=== PATIENT | male | born 1985 ===

== ENCOUNTER 2016-09-01 01:23 | Inpatient (IN) | payer OTHER ==
[2016-09-01] VITALS (15 sets, daily range): BP systolic 100–131; BP diastolic 48–68
[~2016-09-01] VITALS: Ht 167.6 cm; Wt 79.3 kg
[2016-09-01] MEDS ORDERED: AMITRIPTYLINE H25 MG PO (02:25)
[2016-09-01] MEDS ORDERED: GABAPENTIN600 MG PO (02:25)
[2016-09-01] MEDS ORDERED: REMERON15 MG PO (02:26)
[2016-09-01] MEDS ORDERED: SEROQUEL100 MG PO (02:26)
--- NOTE | 2016-09-01 02:31 | ED ORDER SUMMARY ---
..... Patient: [address] OrderSheet [facility] VisitID: [id number] [address] [place] [address] 31y, M Registration Date/Time: 09/01/2016 ORDER SHEET Weight: 81 kg (measured) Allergies: No Known Drug Allergy GENERAL ORDERS: Chest 1V Urgent (:09/01/2016 Georgiana Felix) (Ack 1:41 AMcQuoid ER Tech1) (1:56 AMcQuoid ER Tech1) Blood Culture (No) (N/A) Urgent (:09/01/2016 Georgiana Felix) (Ack 1:41 AMcQuoid ER Tech1) (1:45 RCollier R.N.) CBC w Diff Urgent (:09/01/2016 Georgiana Felix) (Ack 1:41 AMcQuoid ER Tech1) (1:45 RCollier R.N.) CMP Urgent (:09/01/2016 Georgiana Felix) (Ack 1:41 AMcQuoid ER Tech1) (1:45 RCollier R.N.) UA-Culture if indicated Urgent (:09/01/2016 Georgiana Felix) (Ack 1:41 AMcQuoid ER Tech1) (1:45 RCollier R.N.) Urine Drug Screen Urgent (:09/01/2016 Georgiana Felix) (Ack 1:41 AMcQuoid ER Tech1) (1:45 RCollier R.N.) Lactic Acid for Sepsis Protocol Urgent (:09/01/2016 Georgiana Felix) (Ack 1:41 AMcQuoid ER Tech1) (1:45 RCollier R.N.) PCT (Procalcitonin) Urgent (:09/01/2016 Georgiana Felix) (Ack 1:41 AMcQuoid ER Tech1) (1:45 RCollier R.N.) ABG (G) Urgent (01:09/01/2016 Georgiana Felix) (Ack 1:41 AMcQuoid ER Tech1) (1:56 AMcQuoid ER Tech1) EKG - ER Stat (01:09/01/2016 AMcQuoid ER Tech1 per protocol) (1:56 AMcQuoid ER Tech1) MEDICATION ORDERS: Unasyn IV 3 gm/100mL (NOW) (02:07 09/01/2016 Georgiana Felix) (Ack 2:15 RCollier R.N.) (2:18 RCollier R.N.) Albuterol Neb Tx 1 unit dose (NOW) (02:08 09/01/2016 Georgiana Felix) (2:19 BORISollier R.N.) IV FLUIDS: IV NS : initial bolus none -, then 1000 mL/hr for X1 (NOW) (01:34 09/01/2016 Georgiana Felix) (1:39 RCollmarlyn R.N.) Propofol Drip IV : initial bolus None, then 0.1 mg/kg/min (HIGH ALERT MEDICATION, NOW, TITRATE) (01:35 09/01/2016 Georgiana Felix) (Ack 1:42 Jeremiasier R.N.) (1:44 RCollier R.N.) Propofol IV 100 mg (HIGH ALERT MEDICATION, NOW) (01:37 09/01/2016 Deven R.N. verbal order read back to Georgiana Felix) (1:38 RClisbet R.N.) Solu-MEDROL IV 125 mg (NOW) (02:08 09/01/2016 Georgiana Felix) (2:16 RCollier R.N.) ORDER SHEET NOTES: [Electronically signed by Amy Rae R.N. (03:19 09/01/2016)] [Electronically signed by Du Perez Dr. (03:25 09/01/2016)] [Electronically locked/signed by Amy Rae R.N. (03:19 09/01/2016)]
--- NOTE | 2016-09-01 02:31 | ED ORDER SUMMARY ---
..... Patient: [address] OrderSheet [facility] VisitID: [id number] [address] [place] [address] 31y, M Registration Date/Time: 09/01/2016 ORDER SHEET Weight: 81 kg (measured) Allergies: No Known Drug Allergy GENERAL ORDERS: Chest 1V Urgent (:09/01/2016 Georgiana Felix) (Ack 1:41 AMcQuoid ER Tech1) (1:56 AMcQuoid ER Tech1) Blood Culture (No) (N/A) Urgent (:09/01/2016 Georgiana Felix) (Ack 1:41 AMcQuoid ER Tech1) (1:45 RCollier R.N.) CBC w Diff Urgent (:09/01/2016 Georgiana Felix) (Ack 1:41 AMcQuoid ER Tech1) (1:45 RCollier R.N.) CMP Urgent (:09/01/2016 Georgiana Felix) (Ack 1:41 AMcQuoid ER Tech1) (1:45 RCollier R.N.) UA-Culture if indicated Urgent (:09/01/2016 Georgiana Felix) (Ack 1:41 AMcQuoid ER Tech1) (1:45 RCollier R.N.) Urine Drug Screen Urgent (:09/01/2016 Georgiana Felix) (Ack 1:41 AMcQuoid ER Tech1) (1:45 RCollier R.N.) Lactic Acid for Sepsis Protocol Urgent (:09/01/2016 Georgiana Felix) (Ack 1:41 AMcQuoid ER Tech1) (1:45 RCollier R.N.) PCT (Procalcitonin) Urgent (:09/01/2016 Georgiana Felix) (Ack 1:41 AMcQuoid ER Tech1) (1:45 RCollier R.N.) ABG (G) Urgent (01:09/01/2016 Georgiana Felix) (Ack 1:41 AMcQuoid ER Tech1) (1:56 AMcQuoid ER Tech1) EKG - ER Stat (01:09/01/2016 AMcQuoid ER Tech1 per protocol) (1:56 AMcQuoid ER Tech1) MEDICATION ORDERS: Unasyn IV 3 gm/100mL (NOW) (02:07 09/01/2016 Georgiana Felix) (Ack 2:15 RCollier R.N.) (2:18 RCollier R.N.) Albuterol Neb Tx 1 unit dose (NOW) (02:08 09/01/2016 Georgiana Felix) (2:19 BORISollier R.N.) IV FLUIDS: IV NS : initial bolus none -, then 1000 mL/hr for X1 (NOW) (01:34 09/01/2016 Georgiana Felix) (1:39 RCollmarlyn R.N.) Propofol Drip IV : initial bolus None, then 0.1 mg/kg/min (HIGH ALERT MEDICATION, NOW, TITRATE) (01:35 09/01/2016 Georgiana Felix) (Ack 1:42 Jeremiasier R.N.) (1:44 RCollier R.N.) Propofol IV 100 mg (HIGH ALERT MEDICATION, NOW) (01:37 09/01/2016 Deven R.N. verbal order read back to Georgiana Felix) (1:38 RClisbet R.N.) Solu-MEDROL IV 125 mg (NOW) (02:08 09/01/2016 Georgiana Felix) (2:16 RCollier R.N.) ORDER SHEET NOTES: [Electronically signed by Amy Rae R.N. (03:19 09/01/2016)] [Electronically signed by Du Perez Dr. (03:25 09/01/2016)] [Electronically locked/signed by Amy Rae R.N. (03:19 09/01/2016)]
--- NOTE | 2016-09-01 02:31 | ED CLINICAL REPORT ---
Clinical Report - Physicians/Mid Levels [facility] [address] [place] [address] 09/01/2016 1:23 Patient: [address] Time Seen: 01:34; upon arrival, initial patient contact. Arrived- By ambulance. Historian- EMS personnel. History limited by patient's respiratory distress. Physical Exam limited by patient's respiratory distress. CPT: ER phys charges level 5 (#[id number]) (ROS unobtainable due to being intubated). HISTORY OF PRESENT ILLNESS Chief Complaint: DYSPNEA and Aspiration. This started just prior to arrival and is still present. It was abrupt in onset. The dyspnea is severe. No improvement of dyspnea with rest or sitting upright. The patient has had a cough. (Pt found down by . Takes multiple psych meds that make him sleepy and hungry. Pt was apparently eating and aspirated. called 911 and was intubated by EMS.). Similar symptoms previously: None. Recent medical care: Not recently seen/assessed. REVIEW OF SYSTEMS Unobtainable due to patient's unresponsiveness and respiratory distress. All systems otherwise negative, except as recorded above. PAST HISTORY Substance Abuse. Tendonitis. Fx ribs. Left shoulder injury. Abscess. SOCIAL HISTORY Smoker - current status unknown. History of drug use. Is a recovering addict. ADDITIONAL NOTES The nursing notes have been reviewed. PHYSICAL EXAM Vital Signs: 09/01/2016 01:26 BP: 109/67. HR: 107. RR: 12. O2 saturation: 99%. Pain level now: 0/10. Have been reviewed. Blood pressure normal. Tachycardic. Bradypneic. Oxygen saturation normal. Appearance: (Intubated). ENT: The mucous membranes are not dry. Neck: No jugular venous distention. CVS: Tachycardia. Heart sounds normal. Rhythm normal. Respiratory: Respiratory distress (Intubated). Moderately decreased air movement in the right lung base posteriorly and mid-lung posteriorly. Expiratory mild bilateral wheezes diffusely. Abdomen: Soft. No organomegaly. The bowel sounds are not abnormal. Skin: Skin warm and dry. Normal skin color. Extremities: No lower extremity edema. Neuro: Altered mental status. (Intubated and sedated). LABS, X-RAYS, AND EKG EKG: EKG time: (148). Normal sinus rhythm. Rate: 100. Interpretation time: 148. Chest X-ray: Consolidated infiltrate in the right middle lobe and right lower lobe. Consistent with pneumonia. Views: AP. Technique: rotated. The X-rays were independently viewed by me and interpreted contemporaneously by me. A comparison with prior films reveals that the findings have worsened. Laboratory Tests: UA-Culture if indicated: (BRUCE: 09/01/2016 01:40) ( [facility]07) Final results Test Result Flag Units (Reference) URINE COLOR YELLOW URINE APPEARANCE CLEAR URINE GLUCOSE NEGATIVE (NEGATIVE) URINE BILIRUBIN NEGATIVE (NEGATIVE) URINE KETONE NEGATIVE (NEGATIVE) URINE SPECIFIC GRAVITY >= 1.030 (1.010-1.030) URINE PH 6.0 (5.0-8.0) URINE PROTEIN TRACE (NEGATIVE) URINE UROBILINOGEN 0.2 EU/dL (0.2-1.0) URINE NITRITE NEGATIVE (NEGATIVE) URINE BLOOD NEGATIVE (NEGATIVE) URINE LEUK ESTERASE NEGATIVE (NEGATIVE) URINE RBC RARE rbc/hpf (0-1) URINE WBC 0-1 wbc/hpf (0-1) URINE EPITHELIAL CELLS NONE SEEN EPI/hpf (0-5) URINE BACTERIA NONE SEEN (NONE SEEN) URINE COMMENT CULT NOT INDICATED URINE CULTURES ARE SET-UP BASED ON THE FOLLOWING CRITERIA:POSITIVE NITRITEPOSITIVE LEUKOCYTE ESTERASEGREATER THAN 10 WHITE BLOOD CELLSMODERATE (2+) OR GREATER BACTERIA CBC w Diff: (BRUCE: 09/01/2016 01:33) ( [facility] 09/01/2016 01:58) Final results Test Result Flag Units (Reference) WHITE BLOOD COUNT 10.3 K/uL (4.5-11.5) RED BLOOD COUNT 4.15 L M/uL (4.50-5.90) HEMOGLOBIN 12.4 L gm/dL (13.5-17.5) HEMATOCRIT 37.4 L % (41.0-53.0) MEAN CELL VOLUME 90 fL (80-100) MEAN CORPUSCULAR HGB 30 pg (26-34) MEAN CORPUSCULAR HGB CONC 33 g/dL (31-37) RED CELL DISTRIBUTION WIDTH 14.3 % (11.6-14.8) PLATELET COUNT 287 K/uL (150-400) NEUTROPHIL % 68.6 % (50-75) LYMPH % 19.7 L % (25-40) MONO % 9.2 % (3-14) EOSINOPHIL % 1.6 % (0-4) BASOPHIL % 0.9 % (0-2) Urine Drug Screen: (BRUCE: 09/01/2016 01:40) ( MsgRcvd 09/01/2016 02:15) Final results Test Result Flag Units (Reference) AMPHETAMINE/METHAMPHETAMINE NEGATIVE (NEGATIVE) BARBITURATE NEGATIVE (NEGATIVE) BENZODIAZEPINE POSITIVE H (NEGATIVE) CANNABINOID NEGATIVE (NEGATIVE) COCAINE NEGATIVE (NEGATIVE) ECSTASY POSITIVE H (NEGATIVE) METHADONE NEGATIVE (NEGATIVE) OPIATE POSITIVE H (NEGATIVE) The urine drug screen is a qualitative screening test fordrug overdose and abuse. All screen results should beconsidered as presumptive.Drugs screened for are as follows:BenzodiazepinesCocaineAmphetamines/MetamphetaminesTHC (Tetrahydrocannabinol)OpiatesBarbituratesEcstasyMethadonePositive results are unconfirmed. For confirmation, notifythe lab for the specimen to be sent to the reference lab.All confirmations must be performed by a differentmethodology.The ingestion of natural herbal and plant productscontaining Ephedra/Ephedra metabolites can produce in urineone or more substances capable of cross reacting withamphetamine/methamphetamine immunoassays. These testsprovide a preliminary result only. A more specificalternative chemical method must be used to obtain aconfirmed analytical result. [id number]: (BRUCE: 09/01/2016 01:33) ( MdgRcvd 09/01/2016 02:16) Final results Test Result Flag Units (Reference) LACTIC ACID SEPSIS PROTOCOL 0.9 mmol/L (0.4-2.0) [id number]: (BRUCE: 09/01/2016 01:33) ( MsgRcvd 09/01/2016 02:17) Final results Test Result Flag Units (Reference) PROCALCITONIN <0.5 ng/mL (0-0.5) PCT Concentration: Interpretation : Risk/option for action PCT <=0.5 ng/mL : Systemic : Low risk forinfection(sepsis): progression to severeis not likely. : systemic infection.Local bacterial : CAUTION-PCT levelsinfection is : below 0.5 ng/mL do notpossible. : exclude an infection,because localizedinfections (withoutsystemic signs) may beassociated with suchlow levels. If PCT ismeasured very earlyafter a bacterialchallenge (usually <6hours), these valuesmay still be low. Inthis case PCT shouldbe re-assessed 6-24hours later. PCT >0.5 and : Systemic infection: Moderate risk for<= 2 ng/mL : (sepsis) is : progression to severepossible, but : systemic infection.other conditions : The patient should beare known to : closely monitoredelevate PCT. : both clinically andby re-assessing PCTwithin 6-24 hours. PCT > 2 ng/mL : Systemic infection: High risk for(sepsis) is likely: progression to severeunless other : systemic infection.causes are known. : PCT >= 10 ng/mL : Important systemic: High likelihood ofinflammatory : severe sepsis orresponse, almost : septic shock.exclusively due to:severe bacterial :sepsis or septic :shock. : CMP: (BRUCE: 09/01/2016 01:33) ( MsgRcvd 09/01/2016 01:58) Final results Test Result Flag Units (Reference) GLUCOSE 103 mg/dL (70-110) BUN 14 mg/dL (7-18) CREATININE 1.0 mg/dL (0.6-1.3) Estimated GFR >60 mL/min Estimated GFR- >60 mL/min Note: Persistent reduction over 3 months in eGFR<60 mL/min/1.73 m2 defines CKD. Patients with eGFR values>=60 mL/min/1.73 m2 may also have CKD if evidence ofpersistent proteinuria. Additional information may be foundat www.kidney.org. SODIUM 141 mmol/L (136-145) POTASSIUM 4.7 mmol/L (3.5-5.1) CHLORIDE 106 mmol/L (98-107) CARBON DIOXIDE 30 mmol/L (21-32) CALCIUM 7.7 L mg/dL (8.5-10.1) TOTAL PROTEIN 6.8 g/dL (6.4-8.2) ALBUMIN 3.4 g/dL (3.3-5.0) BILIRUBIN, TOTAL 0.4 mg/dL (0.0-1.0) ALKALINE PHOSPHATASE 51 U/L (46-116) AST (SGOT) 81 H U/L (15-37) ALT (SGPT) 47 U/L (12-78) ABG: (BRUCE: 09/01/2016 01:39) ( Mscvd 09/01/2016 02:03) Final results Test Result Flag Units (Reference) FIO2 100 % (20-101) MODIFIED LAURA TEST POSITIVE? NO ABG VENT MODE SIMV ABG TIDAL VOLUME 500 cc ABG PATIENT RESP RATE 6 /MIN ABG RESP RATE SETTINGS 12 /MIN ARTERIAL BLOOD GAS PEEP 5 cmH2O ABG PRESSURE SUPPORT 5 cmH2O ARTERIAL BLOOD GAS SITE RR ARTERIAL BLOOD GAS pH 7.31 L (7.35-7.45) ABG PCO2 57.0 H mmHg (35-45) ABG PO2 181.0 H mmHg (80.0-100.0) ABG BASE EXCESS 2.2 H mmol/L (-6.0--6.0) ABG HCO3 28.9 H mmol/L (20.0-26.0) ABG TCO2 30.6 H mmol/L (24.0-30.0) ABG UnClQ5u 478.2 H mmHg (7.0-14.0) *NOTE: Normal rangeis based on aFIO2 of 21% ABG SAT O2 99.6 % (95.1-100.0) ABG TOTAL HEMOGLOBIN 12.2 L g/dL (14.0-18.0) ABG O2 HEMOGLOBIN 95.0 % (95.0-100.0) ABG CARBOXYHEMOGLOBIN 4.4 H % (0.5-1.5) ABG METHEMOGLOBIN 0.2 L % (0.4-1.5) ABG RHEMOGLOBIN 0.4 % COMMENTS [id number] . PROGRESS AND PROCEDURES Critical care performed (65 minutes). Time includes: direct patient care, patient reassessment, coordination of patient care, interpretation of data (laboratory data, pulse oximetry, arterial blood gases and chest xrays), review of patient's medical records, medical consultation and documentation of patient care. The patient required critical care due to the acute impairment of vital organ systems (respiratory) and a high probability of imminent deterioration. Multiple urgent interventions were required to prevent sudden deterioration. Discussed case with hospitalist, (call returned 02:38 Dr. Reddy, will accept pt, will see in ICU.). Reviewed test results and need for additional work-up. Health care provider will see patient in hospital. Disposition: Admitted to the Critical Care Unit. Condition: stable. Admit decision based on need for IV antibiotics, intensive care and stabilization of condition. CLINICAL IMPRESSION Aspiration and lobar pneumonia with hypoxemia and respiratory failure. Empiric antibiotics given in the ED. Acute respiratory failure with hypoxemia. Chronic substance abuse- benzodiazepines, narcotics with intoxication. INSTRUCTIONS Follow-up: Screening today revealed the patient's blood pressure to be in the pre-hypertensive range. The patient was admitted and blood pressure will be managed during the admission. (Electronically signed by Du Perez Dr. 09/01/2016 3:25)
--- NOTE | 2016-09-01 02:31 | ED CLINICAL REPORT ---
Clinical Report - Physicians/Mid Levels [facility] [address] [place] [address] 09/01/2016 1:23 Patient: [address] Time Seen: 01:34; upon arrival, initial patient contact. Arrived- By ambulance. Historian- EMS personnel. History limited by patient's respiratory distress. Physical Exam limited by patient's respiratory distress. CPT: ER phys charges level 5 (#[id number]) (ROS unobtainable due to being intubated). HISTORY OF PRESENT ILLNESS Chief Complaint: DYSPNEA and Aspiration. This started just prior to arrival and is still present. It was abrupt in onset. The dyspnea is severe. No improvement of dyspnea with rest or sitting upright. The patient has had a cough. (Pt found down by . Takes multiple psych meds that make him sleepy and hungry. Pt was apparently eating and aspirated. called 911 and was intubated by EMS.). Similar symptoms previously: None. Recent medical care: Not recently seen/assessed. REVIEW OF SYSTEMS Unobtainable due to patient's unresponsiveness and respiratory distress. All systems otherwise negative, except as recorded above. PAST HISTORY Substance Abuse. Tendonitis. Fx ribs. Left shoulder injury. Abscess. SOCIAL HISTORY Smoker - current status unknown. History of drug use. Is a recovering addict. ADDITIONAL NOTES The nursing notes have been reviewed. PHYSICAL EXAM Vital Signs: 09/01/2016 01:26 BP: 109/67. HR: 107. RR: 12. O2 saturation: 99%. Pain level now: 0/10. Have been reviewed. Blood pressure normal. Tachycardic. Bradypneic. Oxygen saturation normal. Appearance: (Intubated). ENT: The mucous membranes are not dry. Neck: No jugular venous distention. CVS: Tachycardia. Heart sounds normal. Rhythm normal. Respiratory: Respiratory distress (Intubated). Moderately decreased air movement in the right lung base posteriorly and mid-lung posteriorly. Expiratory mild bilateral wheezes diffusely. Abdomen: Soft. No organomegaly. The bowel sounds are not abnormal. Skin: Skin warm and dry. Normal skin color. Extremities: No lower extremity edema. Neuro: Altered mental status. (Intubated and sedated). LABS, X-RAYS, AND EKG EKG: EKG time: (148). Normal sinus rhythm. Rate: 100. Interpretation time: 148. Chest X-ray: Consolidated infiltrate in the right middle lobe and right lower lobe. Consistent with pneumonia. Views: AP. Technique: rotated. The X-rays were independently viewed by me and interpreted contemporaneously by me. A comparison with prior films reveals that the findings have worsened. Laboratory Tests: UA-Culture if indicated: (BRUCE: 09/01/2016 01:40) ( [facility] [place] 09/01/[place] 02:07) Final results Test Result Flag Units (Reference) URINE COLOR YELLOW URINE APPEARANCE CLEAR URINE GLUCOSE NEGATIVE (NEGATIVE) URINE BILIRUBIN NEGATIVE (NEGATIVE) URINE KETONE NEGATIVE (NEGATIVE) URINE SPECIFIC GRAVITY >= 1.030 (1.010-1.030) URINE PH 6.0 (5.0-8.0) URINE PROTEIN TRACE (NEGATIVE) URINE UROBILINOGEN 0.2 EU/dL (0.2-1.0) URINE NITRITE NEGATIVE (NEGATIVE) URINE BLOOD NEGATIVE (NEGATIVE) URINE LEUK ESTERASE NEGATIVE (NEGATIVE) URINE RBC RARE rbc/hpf (0-1) URINE WBC 0-1 wbc/hpf (0-1) URINE EPITHELIAL CELLS NONE SEEN EPI/hpf (0-5) URINE BACTERIA NONE SEEN (NONE SEEN) URINE COMMENT CULT NOT INDICATED URINE CULTURES ARE SET-UP BASED ON THE FOLLOWING CRITERIA:POSITIVE NITRITEPOSITIVE LEUKOCYTE ESTERASEGREATER THAN 10 WHITE BLOOD CELLSMODERATE (2+) OR GREATER BACTERIA CBC w Diff: (BRUCE: 09/01/2016 01:33) ( [facility] [place] 09/01/2016 01:58) Final results Test Result Flag Units (Reference) WHITE BLOOD COUNT 10.3 K/uL (4.5-11.5) RED BLOOD COUNT 4.15 L M/uL (4.50-5.90) HEMOGLOBIN 12.4 L gm/dL (13.5-17.5) HEMATOCRIT 37.4 L % (41.0-53.0) MEAN CELL VOLUME 90 fL (80-100) MEAN CORPUSCULAR HGB 30 pg (26-34) MEAN CORPUSCULAR HGB CONC 33 g/dL (31-37) RED CELL DISTRIBUTION WIDTH 14.3 % (11.6-14.8) PLATELET COUNT 287 K/uL (150-400) NEUTROPHIL % 68.6 % (50-75) LYMPH % 19.7 L % (25-40) MONO % 9.2 % (3-14) EOSINOPHIL % 1.6 % (0-4) BASOPHIL % 0.9 % (0-2) Urine Drug Screen: (BRUCE: 09/01/2016 01:40) ( MsgRcvd 09/01/2016 02:15) Final results Test Result Flag Units (Reference) AMPHETAMINE/METHAMPHETAMINE NEGATIVE (NEGATIVE) BARBITURATE NEGATIVE (NEGATIVE) BENZODIAZEPINE POSITIVE H (NEGATIVE) CANNABINOID NEGATIVE (NEGATIVE) COCAINE NEGATIVE (NEGATIVE) ECSTASY POSITIVE H (NEGATIVE) METHADONE NEGATIVE (NEGATIVE) OPIATE POSITIVE H (NEGATIVE) The urine drug screen is a qualitative screening test fordrug overdose and abuse. All screen results should beconsidered as presumptive.Drugs screened for are as follows:BenzodiazepinesCocaineAmphetamines/MetamphetaminesTHC (Tetrahydrocannabinol)OpiatesBarbituratesEcstasyMethadonePositive results are unconfirmed. For confirmation, notifythe lab for the specimen to be sent to the reference lab.All confirmations must be performed by a differentmethodology.The ingestion of natural herbal and plant productscontaining Ephedra/Ephedra metabolites can produce in urineone or more substances capable of cross reacting withamphetamine/methamphetamine immunoassays. These testsprovide a preliminary result only. A more specificalternative chemical method must be used to obtain aconfirmed analytical result. [id number]: (BRUCE: 09/01/2016 01:33) ( KsgRcvd 09/01/2016 02:16) Final results Test Result Flag Units (Reference) LACTIC ACID SEPSIS PROTOCOL 0.9 mmol/L (0.4-2.0) [id number]: (BRUCE: 09/01/2016 01:33) ( MsgRcvd 09/01/2016 02:17) Final results Test Result Flag Units (Reference) PROCALCITONIN <0.5 ng/mL (0-0.5) PCT Concentration: Interpretation : Risk/option for action PCT <=0.5 ng/mL : Systemic : Low risk forinfection(sepsis): progression to severeis not likely. : systemic infection.Local bacterial : CAUTION-PCT levelsinfection is : below 0.5 ng/mL do notpossible. : exclude an infection,because localizedinfections (withoutsystemic signs) may beassociated with suchlow levels. If PCT ismeasured very earlyafter a bacterialchallenge (usually <6hours), these valuesmay still be low. Inthis case PCT shouldbe re-assessed 6-24hours later. PCT >0.5 and : Systemic infection: Moderate risk for<= 2 ng/mL : (sepsis) is : progression to severepossible, but : systemic infection.other conditions : The patient should beare known to : closely monitoredelevate PCT. : both clinically andby re-assessing PCTwithin 6-24 hours. PCT > 2 ng/mL : Systemic infection: High risk for(sepsis) is likely: progression to severeunless other : systemic infection.causes are known. : PCT >= 10 ng/mL : Important systemic: High likelihood ofinflammatory : severe sepsis orresponse, almost : septic shock.exclusively due to:severe bacterial :sepsis or septic :shock. : CMP: (BRUCE: 09/01/2016 01:33) ( MsgRcvd 09/01/2016 01:58) Final results Test Result Flag Units (Reference) GLUCOSE 103 mg/dL (70-110) BUN 14 mg/dL (7-18) CREATININE 1.0 mg/dL (0.6-1.3) Estimated GFR >60 mL/min Estimated GFR- >60 mL/min Note: Persistent reduction over 3 months in eGFR<60 mL/min/1.73 m2 defines CKD. Patients with eGFR values>=60 mL/min/1.73 m2 may also have CKD if evidence ofpersistent proteinuria. Additional information may be foundat [email or web address].org. SODIUM 141 mmol/L (136-145) POTASSIUM 4.7 mmol/L (3.5-5.1) CHLORIDE 106 mmol/L (98-107) CARBON DIOXIDE 30 mmol/L (21-32) CALCIUM 7.7 L mg/dL (8.5-10.1) TOTAL PROTEIN 6.8 g/dL (6.4-8.2) ALBUMIN 3.4 g/dL (3.3-5.0) BILIRUBIN, TOTAL 0.4 mg/dL (0.0-1.0) ALKALINE PHOSPHATASE 51 U/L (46-116) AST (SGOT) 81 H U/L (15-37) ALT (SGPT) 47 U/L (12-78) ABG: (BRUCE: 09/01/2016 01:39) ( [facility] 09/01/2016 02:03) Final results Test Result Flag Units (Reference) FIO2 100 % (20-101) MODIFIED LAURA TEST POSITIVE? NO ABG VENT MODE SIMV ABG TIDAL VOLUME 500 cc ABG PATIENT RESP RATE 6 /MIN ABG RESP RATE SETTINGS 12 /MIN ARTERIAL BLOOD GAS PEEP 5 cmH2O ABG PRESSURE SUPPORT 5 cmH2O ARTERIAL BLOOD GAS SITE RR ARTERIAL BLOOD GAS pH 7.31 L (7.35-7.45) ABG PCO2 57.0 H mmHg (35-45) ABG PO2 181.0 H mmHg (80.0-100.0) ABG BASE EXCESS 2.2 H mmol/L (-6.0--6.0) ABG HCO3 28.9 H mmol/L (20.0-26.0) ABG TCO2 30.6 H mmol/L (24.0-30.0) ABG ThCoN6l 478.2 H mmHg (7.0-14.0) *NOTE: Normal rangeis based on aFIO2 of 21% ABG SAT O2 99.6 % (95.1-100.0) ABG TOTAL HEMOGLOBIN 12.2 L g/dL (14.0-18.0) ABG O2 HEMOGLOBIN 95.0 % (95.0-100.0) ABG CARBOXYHEMOGLOBIN 4.4 H % (0.5-1.5) ABG METHEMOGLOBIN 0.2 L % (0.4-1.5) ABG RHEMOGLOBIN 0.4 % COMMENTS [id number] . PROGRESS AND PROCEDURES Critical care performed (65 minutes). Time includes: direct patient care, patient reassessment, coordination of patient care, interpretation of data (laboratory data, pulse oximetry, arterial blood gases and chest xrays), review of patient's medical records, medical consultation and documentation of patient care. The patient required critical care due to the acute impairment of vital organ systems (respiratory) and a high probability of imminent deterioration. Multiple urgent interventions were required to prevent sudden deterioration. Discussed case with hospitalist, (call returned 02:38 Dr. Reddy, will accept pt, will see in ICU.). Reviewed test results and need for additional work-up. Health care provider will see patient in hospital. Disposition: Admitted to the Critical Care Unit. Condition: stable. Admit decision based on need for IV antibiotics, intensive care and stabilization of condition. CLINICAL IMPRESSION Aspiration and lobar pneumonia with hypoxemia and respiratory failure. Empiric antibiotics given in the ED. Acute respiratory failure with hypoxemia. Chronic substance abuse- benzodiazepines, narcotics with intoxication. INSTRUCTIONS Follow-up: Screening today revealed the patient's blood pressure to be in the pre-hypertensive range. The patient was admitted and blood pressure will be managed during the admission. (Electronically signed by Du Perez Dr. 09/01/2016 3:25)
--- NOTE | 2016-09-01 02:31 | ED NURSING NOTES ---
Clinical Report - Nurses [facility] [address] [place] [address] 09/01/2016 1:23 Patient: [address] TRIAGE Triage time 01:24. Acuity: LEVEL 1. Chief Complaint: LOSS OF CONSCIOUSNESS. DHRUV COMA SCORE: Dhruv Coma Scale: 3 (intubated)- eyes do not open (1); best verbal response- none (1); best motor response- none (1). --01:34 Amy Rae R.N. 01:26 09/01/16. BP: 109/67. HR: 107. RR: 12. O2 saturation: 99%. Pain level now: 0/10. Additional comments: pt intubated. --01:34 Amy Rae R.N. Weight: 81 kg measured. Height/Length: 73 inches Estimated. BMI: 23.6. --01:30 Amy Rae R.N. Medications Gabapentin Oral 600 mg, 3x a day. Remeron Oral 30 mg, daily. SEROquel Oral 300 mg, at bedtime. --01:32 Amy Rae R.N. Amitriptyline HCl Oral (Tablet 100 mg) 1 tablet, at bedtime. --01:32 Amy Rae R.N. Allergies No Known Drug Allergy. --01:32 Amy Rae R.N. History Arrived by EMS. ( pt arrives intubated with 7.0 tube, 23 @ teeth.). This started today pt took night time meds, got up to eat a snack, heard a noise, came out to the kitchen to find pt on the floor, vomiting. Pt was unresponsive at that time. called 911. Treatment MANDREL PRESS HAND: See EMS report. --01:34 Amy Rae R.N. PROBLEMS: Substance Abuse. Tendonitis. Fx ribs. Left shoulder injury. Abscess. --01:32 Amy Rae R.N. Interventions ID band on patient. To treatment room. --01:34 Amy Rae R.N. PHYSICAL ASSESSMENT To room via stretcher. ( bilateral feet warm, flushed upon arrival to ED.). GENERAL / NEURO / PSYCH: The patient is unresponsive. CVS: Right breast area : abrasion. Left breast area : abrasion. Capillary refill less than 2 seconds. --01:49 Amy Rae R.N. NURSING PROGRESS NOTES 01:30 09/01/2016 Site #1 started prior to arrival by EMS via IV in the right antecubital space with an 18g angiocath, with aseptic technique and good blood return; one attempt. Saline lock flushed with 10 mL saline. --01:34 Amy Rae R.N. 01:30 09/01/2016 Site #2 started via IV in the left forearm with an 18g angiocath, with aseptic technique and good blood return; one attempt. Blood drawn: rainbow set. Labeled in the presence of the patient and sent to the lab. Saline lock flushed with 10 mL saline (IV #2 started by CORETTA Donato). --01:35 Amy Rae R.N. Side rails up x 2. --01:35 Amy Rae R.N. ( EDMD, 3 RN's, RT, & 2 gas main and line fitter's at bedside upon arrival). --01:36 Amy Rae R.N. 01:31 09/01/2016 PROPOFOL IVP 100 mg given over 10 second(s) via site #1. Allergies verified and confirmed 5 rights. IV patency established. IV site checked: no pain, redness, or swelling. IV flushed thoroughly pre- and post-medication administration. IVP given by physician. --01:38 Amy Rae R.N. 01:39 09/01/2016 Started bag #1 1000 mL IV Fluids IV NS (Saline); at 2000 mg/hr via site #1. Allergies verified and confirmed 5 rights. IV patency established. IV site checked: no pain, redness, or swelling. IV flushed thoroughly pre- and post-medication administration (IV bag #1 hanging upon arrival, 800ml infused upon arrival to ED). --01:39 Amy Rae R.N. 16 fr rivers catheter. Reason for indwelling catheter: patient's decreased level of consciousness. During procedure hand hygiene observed and sterile equipment and aseptic technique used. Return of yellow-colored clear urine. He tolerated procedure well (Rivers placed by CORETTA Donato). --01:41 Amy Rae R.N. Patient ID band checked for patient name and birthdate: patient confirmed. Catheterized urine collected with return of shirley-colored clear urine; sample sent to lab. Specimen labeled in the presence of the patient (collected and labeled by CORETTA Donato). --01:41 Amy Rae R.N. 01:44 09/01/2016 Started 1000 mg of Propofol Drip IV in bag #1 100 mL; at 8 mcg/kg/min via site #1 via IV pump. Allergies verified and confirmed 5 rights. IV patency established. IV site checked: no pain, redness, or swelling. IV flushed thoroughly pre- and post-medication administration (drip managed by Gloria Winchester CCU RN). --01:44 Amy Rae R.N. ekg monitor, pulse oximeter, end tidal CO2 monitor and NIBP monitor placed on patient; monitor alarms on. --01:47 Amy Rae R.N. 01:49 09/01/16. BP: 131/76. HR: 99. RR: 18. O2 saturation: 100%. O2 started via ventilator. --01:50 Amy Rae R.N. 02:12 09/01/2016 SOLU-MEDROL (MethylPREDNISolone Sodium Succ) IVP 125 mg given over 1 minute(s) via site #2. Allergies verified and confirmed 5 rights. IV patency established. IV site checked: no pain, redness, or swelling. IV flushed thoroughly pre- and post-medication administration. IVP given by RN (pushed by CORETTA Castro). --02:16 Amy Rae R.N. 02:14 09/01/2016 Albuterol Neb TX Nebulizer 1 unit dose given. Given by the respiratory therapist. Allergies verified and confirmed 5 rights. --02:19 Amy Rae R.N. 02:17 09/01/2016 Started 3 gm of Unasyn (Ampicillin-Sulbactam Sodium) IVPB in bag #1 100 mL; at 324 mL/hr over 20 minute(s) via site #2 via IV pump. Allergies verified and confirmed 5 rights. IV patency established. IV site checked: no pain, redness, or swelling. IV flushed thoroughly pre- and post-medication administration (started by CORETTA Donato). --02:18 Amy Rae R.N. 02:19 09/01/16. BP: 120/75. HR: 91. RR: 12. O2 saturation: 100% on ventilator. Temp: 35.9 C. --02:20 Amy Rae R.N. 02:21 09/01/2016 Propofol Drip IV via IV site #1 Rate Changed: bag #1 increased to 10 mcg/kg/min via IV pump. IV patency established. IV site checked: no pain, redness, or swelling. IV flushed thoroughly. Confirmed 5 Rights (rate changed by CORETTA Castro). --02:23 Amy Rae R.N. 02:30 09/01/2016 IV Fluids IV NS via IV site #1 Rate Changed: bag #1 decreased to 50 mL/hr via IV pump. IV patency established. IV site checked: no pain, redness, or swelling. IV flushed thoroughly. Confirmed 5 Rights (for last 100ml in bag #1, per verbal order from EDMD). --02:32 Amy Rae R.N. 02:38 09/01/2016 Unasyn IVPB Discontinued: bag #1 completed. Total amount infused: 100 mL. IV patency established. IV site checked: no pain, redness, or swelling. IV flushed thoroughly. --02:38 Amy Rae R.N. EKG time: (01:49 AM). EKG was performed by a tech and shown to the ED physician. --02:45 Rae Martinez 03:00 09/01/2016 IV Fluids IV NS Discontinued: bag #1 completed. Total amount infused: 950 mL. IV patency established. IV site checked: no pain, redness, or swelling. IV flushed thoroughly. --03:18 Amy Rae R.N. Intake & Output Urine: 02:30, with return of 400 mL shirley-colored clear urine; attached to urimeter. --02:35 Amy Rae R.N. DISPOSITION / DISCHARGE Report was given to a nurse via a phone call. Report included patient's care, treatment, medications, reviewed medication reconcilliation, and condition (including any recent changes or anticipated changes). All questions were answered. Report was acknowledged. --02:44 Amy Rae R.N. Admitted to the Critical Care Unit. --02:45 Amy Rae R.N. 02:54 09/01/16. BP: 133/72. HR: 97. RR: 12. O2 saturation: 100% on ventilator. Temp: 35.9 C. --02:55 Amy Rae R.N. Transported via stretcher by nurse and respiratory therapist with IV and ventilator. --02:55 Amy Rae R.N. 02:55 09/01/2016 Site #[address] upon admission. --02:55 Amy Rae R.N. 02:55 09/01/2016 Site #[address] upon admission. --02:56 Amy Rae R.N. 02:56 09/01/2016 Propofol Drip IV Continued: upon admission at the rate of 10 mcg/kg/hr. 94.8 mL remaining bag #1. IV patency established. IV site checked: no pain, redness, or swelling. IV flushed thoroughly. --02:57 Amy Rae R.N. Locked/Released at 09/01/2016 3:19 by Amy Rae R.N.
--- NOTE | 2016-09-01 02:31 | ED NURSING NOTES ---
Clinical Report - Nurses [facility] [address] [place] [address] 09/01/2016 1:23 Patient: [address] TRIAGE Triage time 01:24. Acuity: LEVEL 1. Chief Complaint: LOSS OF CONSCIOUSNESS. DHRUV COMA SCORE: Dhruv Coma Scale: 3 (intubated)- eyes do not open (1); best verbal response- none (1); best motor response- none (1). --01:34 Amy Rae R.N. 01:26 09/01/16. BP: 109/67. HR: 107. RR: 12. O2 saturation: 99%. Pain level now: 0/10. Additional comments: pt intubated. --01:34 Amy Rae R.N. Weight: 81 kg measured. Height/Length: 73 inches Estimated. BMI: 23.6. --01:30 Amy Rae R.N. Medications Gabapentin Oral 600 mg, 3x a day. Remeron Oral 30 mg, daily. SEROquel Oral 300 mg, at bedtime. --01:32 Amy Rae R.N. Amitriptyline HCl Oral (Tablet 100 mg) 1 tablet, at bedtime. --01:32 Amy Rae R.N. Allergies No Known Drug Allergy. --01:32 Amy Rae R.N. History Arrived by EMS. ( pt arrives intubated with 7.0 tube, 23 @ teeth.). This started today pt took night time meds, got up to eat a snack, heard a noise, came out to the kitchen to find pt on the floor, vomiting. Pt was unresponsive at that time. called 911. Treatment SAFETY ADMIN ASSISTANT: See EMS report. --01:34 Amy Rae R.N. PROBLEMS: Substance Abuse. Tendonitis. Fx ribs. Left shoulder injury. Abscess. --01:32 Amy Rae R.N. Interventions ID band on patient. To treatment room. --01:34 Amy Rae R.N. PHYSICAL ASSESSMENT To room via stretcher. ( bilateral feet warm, flushed upon arrival to ED.). GENERAL / NEURO / PSYCH: The patient is unresponsive. CVS: Right breast area : abrasion. Left breast area : abrasion. Capillary refill less than 2 seconds. --01:49 Amy Rae R.N. NURSING PROGRESS NOTES 01:30 09/01/2016 Site #1 started prior to arrival by EMS via IV in the right antecubital space with an 18g angiocath, with aseptic technique and good blood return; one attempt. Saline lock flushed with 10 mL saline. --01:34 Amy Rae R.N. 01:30 09/01/2016 Site #2 started via IV in the left forearm with an 18g angiocath, with aseptic technique and good blood return; one attempt. Blood drawn: rainbow set. Labeled in the presence of the patient and sent to the lab. Saline lock flushed with 10 mL saline (IV #2 started by CORETTA Donato). --01:35 Amy Rae R.N. Side rails up x 2. --01:35 Amy Rae R.N. ( EDMD, 3 RN's, RT, & 2 bean dumper's at bedside upon arrival). --01:36 Amy Rae R.N. 01:31 09/01/2016 PROPOFOL IVP 100 mg given over 10 second(s) via site #1. Allergies verified and confirmed 5 rights. IV patency established. IV site checked: no pain, redness, or swelling. IV flushed thoroughly pre- and post-medication administration. IVP given by physician. --01:38 Amy Rae R.N. 01:39 09/01/2016 Started bag #1 1000 mL IV Fluids IV NS (Saline); at 2000 mg/hr via site #1. Allergies verified and confirmed 5 rights. IV patency established. IV site checked: no pain, redness, or swelling. IV flushed thoroughly pre- and post-medication administration (IV bag #1 hanging upon arrival, 800ml infused upon arrival to ED). --01:39 Amy Rae R.N. 16 fr rivers catheter. Reason for indwelling catheter: patient's decreased level of consciousness. During procedure hand hygiene observed and sterile equipment and aseptic technique used. Return of yellow-colored clear urine. He tolerated procedure well (Rivers placed by CORETTA Donato). --01:41 Amy Rae R.N. Patient ID band checked for patient name and birthdate: patient confirmed. Catheterized urine collected with return of shirley-colored clear urine; sample sent to lab. Specimen labeled in the presence of the patient (collected and labeled by CORETTA Donato). --01:41 Amy Rae R.N. 01:44 09/01/2016 Started 1000 mg of Propofol Drip IV in bag #1 100 mL; at 8 mcg/kg/min via site #1 via IV pump. Allergies verified and confirmed 5 rights. IV patency established. IV site checked: no pain, redness, or swelling. IV flushed thoroughly pre- and post-medication administration (drip managed by Gloria Winchester CCU RN). --01:44 Amy Rae R.N. postpartum rn, pulse oximeter, end tidal CO2 monitor and NIBP monitor placed on patient; monitor alarms on. --01:47 Amy Rae R.N. 01:49 09/01/16. BP: 131/76. HR: 99. RR: 18. O2 saturation: 100%. O2 started via ventilator. --01:50 Amy Rae R.N. 02:12 09/01/2016 SOLU-MEDROL (MethylPREDNISolone Sodium Succ) IVP 125 mg given over 1 minute(s) via site #2. Allergies verified and confirmed 5 rights. IV patency established. IV site checked: no pain, redness, or swelling. IV flushed thoroughly pre- and post-medication administration. IVP given by RN (pushed by CORETTA Castro). --02:16 Amy Rae R.N. 02:14 09/01/2016 Albuterol Neb TX Nebulizer 1 unit dose given. Given by the respiratory therapist. Allergies verified and confirmed 5 rights. --02:19 Amy Rae R.N. 02:17 09/01/2016 Started 3 gm of Unasyn (Ampicillin-Sulbactam Sodium) IVPB in bag #1 100 mL; at 324 mL/hr over 20 minute(s) via site #2 via IV pump. Allergies verified and confirmed 5 rights. IV patency established. IV site checked: no pain, redness, or swelling. IV flushed thoroughly pre- and post-medication administration (started by CORETTA Donato). --02:18 Amy Rae R.N. 02:19 09/01/16. BP: 120/75. HR: 91. RR: 12. O2 saturation: 100% on ventilator. Temp: 35.9 C. --02:20 Amy Rae R.N. 02:21 09/01/2016 Propofol Drip IV via IV site #1 Rate Changed: bag #1 increased to 10 mcg/kg/min via IV pump. IV patency established. IV site checked: no pain, redness, or swelling. IV flushed thoroughly. Confirmed 5 Rights (rate changed by CORETTA Castro). --02:23 Amy Rae R.N. 02:30 09/01/2016 IV Fluids IV NS via IV site #1 Rate Changed: bag #1 decreased to 50 mL/hr via IV pump. IV patency established. IV site checked: no pain, redness, or swelling. IV flushed thoroughly. Confirmed 5 Rights (for last 100ml in bag #1, per verbal order from EDMD). --02:32 Amy Rae R.N. 02:38 09/01/2016 Unasyn IVPB Discontinued: bag #1 completed. Total amount infused: 100 mL. IV patency established. IV site checked: no pain, redness, or swelling. IV flushed thoroughly. --02:38 Amy Rae R.N. EKG time: (01:49 AM). EKG was performed by a tech and shown to the ED physician. --02:45 Rae Martinez 03:00 09/01/2016 IV Fluids IV NS Discontinued: bag #1 completed. Total amount infused: 950 mL. IV patency established. IV site checked: no pain, redness, or swelling. IV flushed thoroughly. --03:18 Amy Rae R.N. Intake & Output Urine: 02:30, with return of 400 mL shirley-colored clear urine; attached to urimeter. --02:35 Amy Rae R.N. DISPOSITION / DISCHARGE Report was given to a nurse via a phone call. Report included patient's care, treatment, medications, reviewed medication reconcilliation, and condition (including any recent changes or anticipated changes). All questions were answered. Report was acknowledged. --02:44 Amy Rae R.N. Admitted to the Critical Care Unit. --02:45 Amy Rae R.N. 02:54 09/01/16. BP: 133/72. HR: 97. RR: 12. O2 saturation: 100% on ventilator. Temp: 35.9 C. --02:55 Amy Rae R.N. Transported via stretcher by nurse and respiratory therapist with IV and ventilator. --02:55 Amy Rae R.N. 02:55 09/01/2016 Site #[address] upon admission. --02:55 Amy Rae R.N. 02:55 09/01/2016 Site #[address] upon admission. --02:56 mAy Rae R.N. 02:56 09/01/2016 Propofol Drip IV Continued: upon admission at the rate of 10 mcg/kg/hr. 94.8 mL remaining bag #1. IV patency established. IV site checked: no pain, redness, or swelling. IV flushed thoroughly. --02:57 Amy Rae R.N. Locked/Released at 09/01/2016 3:19 by Amy Rae R.N.
--- NOTE | 2016-09-01 03:25 | ED MED RECONCILIATION SUMMARY ---
Patient: [address] Medication Reconciliation Report [facility] VisitID: [id number] [address] [place] [address] 31y, M Registration Date/Time: 09/01/2016 Weight: 81 kg Height/Length: 73 in. BMI: 23.6 ALLERGIES: No Known Drug Allergy The patient's Home Medications are listed below: THE FOLLOWING MEDICATIONS NEED TO BE RECONCILED: Amitriptyline HCl Oral (100 mg) 1 tablet, at bedtime Gabapentin Oral 600 mg, 3x a day Remeron Oral 30 mg, daily SEROquel Oral 300 mg, at bedtime The source(s) of the original Home Medication information: Not obtained. The following Medications were given to the patient in the Emergency Department: PROPOFOL [IVP] IVP 100 mg, administered: 09/01/2016 1:31:00 AM IV NS IV Fluids bolus 0, then 2000 mg/hr, administered: 09/01/2016 1:39:00 AM Propofol [IV Drip] Drip IV bolus 0, then 1000 mg 8 mcg/kg/min, administered: 09/01/2016 1:44:00 AM SOLU-MEDROL [IVP] IVP 125 mg, administered: 09/01/2016 2:12:00 AM Unasyn [IVPB] IVPB bolus 0, then 3 gm 324 mL/hr, administered: 09/01/2016 2:17:00 AM Albuterol [Neb Tx] Neb TX 1 unit dose, administered: 09/01/2016 2:14:00 AM The following Medications were prescribed to the patient: None.
--- NOTE | 2016-09-01 03:25 | ED MAR SUMMARY ---
..... Medication Administration Record [facility] [address] [place] [address] Patient: [address] Visit ID: [id number] 31y, M Weight: 81.0 kg Height/Length: 73 in BMI: 23.6 ALLERGIES: No Known Drug Allergy Given 01:31 09/01/2016 Amy aRe R.N. Medication Administered: PROPOFOL [IVP], Dose: 100 mg IVP over 10 second(s), Site: #1 right AC. Medication Ordered: Propofol IV 100 mg (HIGH ALERT MEDICATION, NOW). Start 01:39 09/01/2016 Amy Rae R.N., Stop 03:00 09/01/2016 Amy Rae R.N. Medication Administered: IV NS (SALINE), Dose: IV Fluids, Rate: 2000 mg/hr, Dispensed: 1000 mL bag, Site: #1 right AC. Medication Ordered: IV NS : initial bolus none -, then 1000 mL/hr for X1 (NOW). Start 01:44 09/01/2016 Amy Rae R.N., Continued Upon Admission 02:56 09/01/2016 Amy Rae R.N. Medication Administered: PROPOFOL [IV DRIP], Dose: 1000 mg Drip IV, Rate: 8 mcg/kg/min, Dispensed: 100 mL bag, Site: #1 right AC. Medication Ordered: Propofol Drip IV : initial bolus None, then 0.1 mg/kg/min (HIGH ALERT MEDICATION, NOW, TITRATE). Given 02:12 09/01/2016 Amy Rae R.N. Medication Administered: SOLU-MEDROL [IVP] (METHYLPREDNISOLONE SODIUM SUCC), Dose: 125 mg IVP over 1 minute(s), Site: #2 left forearm. Medication Ordered: Solu-MEDROL IV 125 mg (NOW). Given 02:14 09/01/2016 Amy Rae R.N. Medication Administered: ALBUTEROL [NEB TX], Dose: 1 unit dose Nebulizer Neb TX. Medication Ordered: Albuterol Neb Tx 1 unit dose (NOW). Start 02:17 09/01/2016 Amy Rae R.N., Stop 02:38 09/01/2016 Amy Rae R.N. Medication Administered: UNASYN [IVPB] (AMPICILLIN-SULBACTAM SODIUM), Dose: 3 gm IVPB over 20 minute(s), Rate: 324 mL/hr, Dispensed: 100 mL bag, Site: #2 left forearm. Medication Ordered: Unasyn IV 3 gm/100mL (NOW).
--- NOTE | 2016-09-01 03:25 | ED DISCHARGE INSTRUCTIONS ---
Patient: [address] General Instructions [facility] VisitID: [id number] [address] [place] [address] 31y, M Registration Date/Time: 09/01/2016 Aspiration and lobar pneumonia with hypoxemia and respiratory failure. Empiric antibiotics given in the ED. Acute respiratory failure with hypoxemia. Chronic substance abuse- benzodiazepines, narcotics with intoxication. INSTRUCTIONS Follow-up: Screening today revealed the patient's blood pressure to be in the pre-hypertensive range. The patient was admitted and blood pressure will be managed during the admission. (Electronically signed by Du Perez Dr. 09/01/2016 3:25)
--- NOTE | 2016-09-01 03:25 | ED DISCHARGE INSTRUCTIONS ---
Patient: [address] General Instructions [facility] VisitID: [id number] [address] [place] [address] 31y, M Registration Date/Time: 09/01/2016 Aspiration and lobar pneumonia with hypoxemia and respiratory failure. Empiric antibiotics given in the ED. Acute respiratory failure with hypoxemia. Chronic substance abuse- benzodiazepines, narcotics with intoxication. INSTRUCTIONS Follow-up: Screening today revealed the patient's blood pressure to be in the pre-hypertensive range. The patient was admitted and blood pressure will be managed during the admission. (Electronically signed by Du Perez Dr. 09/01/2016 3:25)
--- NOTE | 2016-09-01 03:25 | ED MAR SUMMARY ---
..... Medication Administration Record [facility] [address] [address] Patient: [address] Visit ID: [id number] 31y, M Weight: 81.0 kg Height/Length: 73 in BMI: 23.6 ALLERGIES: No Known Drug Allergy Given 01:31 09/01/2016 Amy Rae R.N. Medication Administered: PROPOFOL [IVP], Dose: 100 mg IVP over 10 second(s), Site: #1 right AC. Medication Ordered: Propofol IV 100 mg (HIGH ALERT MEDICATION, NOW). Start 01:39 09/01/2016 Amy Rae R.N., Stop 03:00 09/01/2016 Amy Rae R.N. Medication Administered: IV NS (SALINE), Dose: IV Fluids, Rate: 2000 mg/hr, Dispensed: 1000 mL bag, Site: #1 right AC. Medication Ordered: IV NS : initial bolus none -, then 1000 mL/hr for X1 (NOW). Start 01:44 09/01/2016 Amy Rae R.N., Continued Upon Admission 02:56 09/01/2016 Amy Rae R.N. Medication Administered: PROPOFOL [IV DRIP], Dose: 1000 mg Drip IV, Rate: 8 mcg/kg/min, Dispensed: 100 mL bag, Site: #1 right AC. Medication Ordered: Propofol Drip IV : initial bolus None, then 0.1 mg/kg/min (HIGH ALERT MEDICATION, NOW, TITRATE). Given 02:12 09/01/2016 Amy Rae R.N. Medication Administered: SOLU-MEDROL [IVP] (METHYLPREDNISOLONE SODIUM SUCC), Dose: 125 mg IVP over 1 minute(s), Site: #2 left forearm. Medication Ordered: Solu-MEDROL IV 125 mg (NOW). Given 02:14 09/01/2016 Amy Rae R.N. Medication Administered: ALBUTEROL [NEB TX], Dose: 1 unit dose Nebulizer Neb TX. Medication Ordered: Albuterol Neb Tx 1 unit dose (NOW). Start 02:17 09/01/2016 Amy Rae R.N., Stop 02:38 09/01/2016 Amy Rae R.N. Medication Administered: UNASYN [IVPB] (AMPICILLIN-SULBACTAM SODIUM), Dose: 3 gm IVPB over 20 minute(s), Rate: 324 mL/hr, Dispensed: 100 mL bag, Site: #2 left forearm. Medication Ordered: Unasyn IV 3 gm/100mL (NOW).
--- NOTE | 2016-09-01 03:25 | ED MED RECONCILIATION SUMMARY ---
Patient: [address] Medication Reconciliation Report [facility] VisitID: [id number] [address] [place] [address] 31y, M Registration Date/Time: 09/01/2016 Weight: 81 kg Height/Length: 73 in. BMI: 23.6 ALLERGIES: No Known Drug Allergy The patient's Home Medications are listed below: THE FOLLOWING MEDICATIONS NEED TO BE RECONCILED: Amitriptyline HCl Oral (100 mg) 1 tablet, at bedtime Gabapentin Oral 600 mg, 3x a day Remeron Oral 30 mg, daily SEROquel Oral 300 mg, at bedtime The source(s) of the original Home Medication information: Not obtained. The following Medications were given to the patient in the Emergency Department: PROPOFOL [IVP] IVP 100 mg, administered: 09/01/2016 1:31:00 AM IV NS IV Fluids bolus 0, then 2000 mg/hr, administered: 09/01/2016 1:39:00 AM Propofol [IV Drip] Drip IV bolus 0, then 1000 mg 8 mcg/kg/min, administered: 09/01/2016 1:44:00 AM SOLU-MEDROL [IVP] IVP 125 mg, administered: 09/01/2016 2:12:00 AM Unasyn [IVPB] IVPB bolus 0, then 3 gm 324 mL/hr, administered: 09/01/2016 2:17:00 AM Albuterol [Neb Tx] Neb TX 1 unit dose, administered: 09/01/2016 2:14:00 AM The following Medications were prescribed to the patient: None.
--- NOTE | 2016-09-01 03:28 | History & Physical Report ---
Information Source Information Source: Spouse/Partner, ED Record Reliability: Fair History Chief Complaint Aspiration and respiratory failure History of Present Illness Patient is a 31-year-old male with a past medical history of bipolar disorder. Most of the history that was obtained was obtained through the patient's fianc who is currently not at bedside nor available to reach on the phone. The ER physician was able to reach the fianc was able to provide a modest history but not much else. As per the patient's fianc he has been in his normal state of health however he often wakes up in the middle of the night to eat something. In this instance he got up during the night to eat something at the fianc was allergic motion kitchen at that point she found the patient on the floor medication aspirating vomitus. She turned the patient over on his side and called EMS. By the time patient was seen by EMS he was in respiratory distress leading to respiratory failure. Patient was intubated on site and was brought to the emergency room. During the stay in the emergency room the patient was seen to be combative. Patient was "was placed on a propofol drip and subsequently did much better. Additionally patient was seen to test positive for opiates and benzodiazepines both of which are not home medications recommended for the patient. Lastly patient was seen to have the ET tube in the right stem bronchus patient had the ET tube adjusted to the point where patient' s respiratory function was much more improved patient will be remain intubated Patient History 1. Aspiration pneumonia 2. Respiratory failure 3. Bipolar 1 disorder 4. Substance abuse Social History Not much social history can be obtained given the patient is intubated and the fiance is not available for comment. The patient's mother was able to be reached however she can only provide very little details into the patient. Apparently patient lives half the time with the mother and half the time with a fiance. He has a long-standing history of drug abuse. He has been recently [facility] and has been in drug rehabilitation as well. He recently had his child taken away by social organization professor. Family History Family history was reviewed; no changes noted. Medications and Allergies Medications Home meds Amitriptyline 100 mg daily Mirtazapine 30 mg daily Samantha Quill 300 mg twice a day Gabapentin 800 mg 3 times a day Current Medications Sig/Armida Start time Last Medication Dose Route Stop Time Status Admin Pantoprazole Sodium 40 MG DAILY@0600 09/01 0600 AC IV Propofol See Dose TITRATE 09/01 0345 AC Insts (1) IV Acetaminophen 650 MG Q4H PRN 09/01 033 AC PTUBE Propofol See Dose TITRATE 09/01 033 CAN Insts (2) IV Sodium Chloride 1,000 ML ASDIRECTED 09/01 033 AC 09/01 IV 0333 Dose Instructions: (1)Propofol: TITRATE TO SEDATION (2)Propofol: TITRATE FOR SEDATION Allergies Coded Allergies: NKA (09/01/16) Reconcile Medications Scheduled Medications Amitriptyline HCl (Amitriptyline HCl 25 MG) 25 MG TAB 100 MG PO QHS (Reported ) Gabapentin (Gabapentin 600 MG) 600 MG TAB 600 MG PO TID (Reported) Mirtazapine (Remeron 15 MG) 15 MG TAB 30 MG PO DAILY (Reported) Quetiapine Fumerate (SEROquel) 100 MG TAB 300 MG PO HS (Reported) Review of Systems Constitutional Other (unable to provide- intubated ). Physical Exam Vital Signs / I&Os Vital Signs Date Time Temp Pulse Resp B/P Pulse O2 O2 Flow FiO2 Ox Delivery Rate 09/01 0401 97.5 99 12 116/59 99 Ventilator 75 09/01 0340 97.3 95 12 131/67 100 Ventilator 75 09/01 0334 Ventilator 75 General Appearance - sedated, intubated HEENT Normal exam (- et tube looks in place), Atraumatic (- no ) Lungs -right lower base crackles - bilateral air entry - no wheezes or ronchi present Neck No JVD, No masses, No thyromegaly Cardiovascular Regular rate and rhythm, Normal S1 and S2, No murmurs, gallops, rubs Abdomen Soft, No tenderness, No guarding Extremities No edema, Normal pulses, No tenderness Skin No Breakdown Neurological No lateralizing signs Psych/Mental Status - sedated LAB Results Laboratory Tests 09/01 09/01 09/01 09/01 0133 0133 0133 0139 Blood Gas Sample Site RR Total CO2 (24.0 - 30.0 mmol/L) 30.6 ABG pH (7.35 - 7.45) 7.31 ABG pCO2 at Pt Temp (35 - 45 mmHg) 57.0 ABG pO2 at Pt Temp (80.0 - 100.0 mmHg) 181.0 ABG HCO3 (20.0 - 26.0 mmol/L) 28.9 ABG O2 Sat Calc/Mary (95.1 - 100.0 %) 99.6 ABG Base Excess (-6.0 - -6.0 mmol/L) 2.2 ABG Reduced Hgb (%) 0.4 ABG Carboxyhemoglobin (0.5 - 1.5 %) 4.4 ABG Methemoglobin (0.4 - 1.5 %) 0.2 Nicolas Test NO Other Total Hgb (14.0 - 18.0 g/dL) 12.2 A-a O2 Gradient (7.0 - 14.0 mmHg) 478.2 Hgb O2 Saturation (95.0 - 100.0 %) 95.0 Respiration Rate (/MIN) 12 Vent Mode SIMV FiO2 (20 - 101 %) 100 Tidal Volume (cc) 500 PEEP (cmH2O) 5 Pressure Support (cmH2O) 5 Blood Gas Comments [id number] Chemistry Plasma Sodium (136 - 145 mmol/L) 141 Plasma Potassium (3.5 - 5.1 mmol/L) 4.7 Plasma Chloride (98 - 107 mmol/L) 106 CO2 (Enzymatic) (21 - 32 mmol/L) 30 BUN (7 - 18 mg/dL) 14 Creatinine (0.6 - 1.3 mg/dL) 1.0 Est GFR ( Amer) (mL/min) >60 Est GFR (Non-Af Amer) (mL/min) >60 Glucose (70 - 110 mg/dL) 103 Lactic Acid (0.4 - 2.0 mmol/L) 0.9 Plasma Calcium (8.5 - 10.1 mg/dL) 7.7 Total Bilirubin (0.0 - 1.0 mg/dL) 0.4 AST (15 - 37 U/L) 81 ALT (12 - 78 U/L) 47 Alkaline Phosphatase (46 - 116 U/L) 51 Total Protein (6.4 - 8.2 g/dL) 6.8 Albumin (3.3 - 5.0 g/dL) 3.4 Procalcitonin (0 - 0.5 ng/mL) <0.5 Hematology WBC (4.5 - 11.5 K/uL) 10.3 RBC (4.50 - 5.90 M/uL) 4.15 Hgb (13.5 - 17.5 gm/dL) 12.4 Hct (41.0 - 53.0 %) 37.4 MCV (80 - 100 fL) 90 MCH (26 - 34 pg) 30 RDW (11.6 - 14.8 %) 14.3 Neut % (Auto) (50 - 75 %) 68.6 Lymph % (Auto) (25 - 40 %) 19.7 [place] % (Auto) (3 - 14 %) 9.2 Eos % (Auto) (0 - 4 %) 1.6 Baso % (Auto) (0 - 2 %) 0.9 Plt Count, EDTA (150 - 400 K/uL) 287 PUBS MCHC (31 - 37 g/dL) 33 09/01 0140 Toxicology Urine Opiates Screen (NEGATIVE) POSITIVE Urine Methadone Screen (NEGATIVE) NEGATIVE Ur Barbiturates Screen (NEGATIVE) NEGATIVE U Amphetamin/Meth Scrn (NEGATIVE) NEGATIVE MDMA (Ecstasy) Screen (NEGATIVE) POSITIVE U Benzodiazepines Scrn (NEGATIVE) POSITIVE Urine Cocaine Screen (NEGATIVE) NEGATIVE U Cannabinoids Screen (NEGATIVE) NEGATIVE Urines Urine Color YELLOW Urine Appearance CLEAR Urine pH (5.0 - 8.0) 6.0 Ur Specific Jasper (1.010 - 1.030) >= 1.030 Urine Protein (NEGATIVE) TRACE Urine Ketones (NEGATIVE) NEGATIVE Urine Blood (NEGATIVE) NEGATIVE Urine Nitrite (NEGATIVE) NEGATIVE Urine Bilirubin (NEGATIVE) NEGATIVE Urine Urobilinogen (0.2 - 1.0 EU/dL) 0.2 Ur Leukocyte Esterase (NEGATIVE) NEGATIVE Urine RBC (0 - 1 rbc/hpf) RARE Urine WBC (0 - 1 wbc/hpf) 0-1 Ur Epithelial Cells (0 - 5 EPI/hpf) NONE SEEN Urine Bacteria (NONE SEEN) NONE SEEN Urine Glucose (NEGATIVE) NEGATIVE Urine Comment CULT NOT INDICATED Microbiology Date/Time Procedure - Status Source Growth 09/01 0334 MRSA Screen - COLB NASAL 09/01 0154 Blood Culture - RECD BLOOD 09/01 0133 Blood Culture - RECD BLOOD Assessment and Plan Problem List 1. Aspiration pneumonia Plan Patient has evidence of aspiration Patient upon arrival was seen to be in respiratory failure most likely from aspiration a large amount of the partially digested fluid and was suctioned out of the patient's lungs Patient on x-ray has evidence of infiltrates in the right side as well as the left side We'll place the patient on Unasyn for the time being We'll keep the patient ventilated for the time being We'll obtain ABG in the a.m. We'll performed daily x-rays 2. Respiratory failure Plan Most likely from aspiration pneumonia Cannot rule out opiate-induced hypoventilation which may have contributed We'll keep the patient intubated for the time being 3. Bipolar 1 disorder Plan Patient has a known history of bipolar 1 disorder We'll hold medication due to the sedating effects Once patient is extubated we'll resume all his home medications 4. Substance abuse Plan Patient has a long-standing history of drug abuse as per mother Patient tested positive for both opiates and benzodiazepines both of which he is not prescribed Patient has evidence of track miguel on his arms and his leg Will monitor for any withdrawal symptoms
--- NOTE | 2016-09-01 04:39 | DIAGNOSTIC IMAGING REPORT ---
PROCEDURE: XR CHEST 1 VIEW INDICATION: Intubation. Respiratory failure. TECHNIQUE: Portable AP view (0145 hours). COMPARISON: None. FINDINGS: 82 there is an satisfactory position (4 cm above the christian). NG tube is in position. There is mild to moderate increased density at the right lung base volume loss. Left lung is clear. Heart and mediastinum are normal. Thorax is normal. IMPRESSION: 1. ET tube and NG tubes are in satisfactory position. 2. Moderate density at the right lung base compatible with atelectasis and pneumonia (e.g., aspiration, bacterial).
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
--- NOTE | 2016-09-01 15:24 | DIAGNOSTIC IMAGING REPORT ---
PROCEDURE: XR CHEST 1 VIEW INDICATION: aspiration TECHNIQUE: Portable AP view 03:01 p.m.. COMPARISON: Chest x-ray 09/01/2016 at 01:43 a.m. FINDINGS: ET and NG tubes remain in good position. Resolved right basilar opacity consistent with resolved atelectasis. Left lung is clear. Heart size, mediastinum and pulmonary vessels are normal. Bony thorax is unremarkable. IMPRESSION: 1. ET and NG tubes in satisfactory position 2. Resolved right basilar atelectasis 3. Results called to the hospitalist (voicemail).
== END 2016-09-01 17:50 | disposition left against medical advice (07) | DRG 137 ==
LOC: ED SRH 01:23 → TRANS SRH 02:13 → CC SRH 02:13
PROVIDERS: ADMIT Family Medicine
PROC: 5A1935Z Respiratory Ventilation, Less than 24 Consecutive Hours (ICD-10-PCS; principal; 2016-09-01)
PROC: 0D9670Z Drainage of Stomach with Drainage Device, Via Natural or Artificial Opening (ICD-10-PCS; 2016-09-01)
PROC: 0T9B70Z Drainage of Bladder with Drainage Device, Via Natural or Artificial Opening (ICD-10-PCS; 2016-09-01)
DX: J69.0 Pneumonitis due to inhalation of food and vomit (principal); T17.820A Food in other parts of respiratory tract causing asphyxiation, initial encounter; J96.01 Acute respiratory failure with hypoxia; F11.129 Opioid abuse with intoxication, unspecified; F19.120 Other psychoactive substance abuse with intoxication, uncomplicated; F31.9 Bipolar disorder, unspecified; R03.0 Elevated blood-pressure reading, without diagnosis of hypertension; R40.2312 Coma scale, best motor response, none, at arrival to emergency department; R40.2112 Coma scale, eyes open, never, at arrival to emergency department; R40.2212 Coma scale, best verbal response, none, at arrival to emergency department
CPT/HCPCS: 83637; 85241; 90004; 90065; 90100; 91672; 92010; 92031; 92132; 92760; 92761; 92762; 92763; 92764; 92765; 92766; 92767; 93004; 95059

== ENCOUNTER 2016-09-05 11:14 | Emergency (ER) | payer OTHER ==
[~2016-09-05 11:14] MED LIST: AMITRIPTYLINE H25 MG PO; GABAPENTIN600 MG PO; REMERON15 MG PO; SEROQUEL100 MG PO
--- NOTE | 2016-09-05 12:30 | DIAGNOSTIC IMAGING REPORT ---
PROCEDURE: XR CHEST 2 VIEW INDICATION: COUGH, history of aspiration TECHNIQUE: Two views. COMPARISON: 09/01/2016 FINDINGS: The cardiomediastinal contour is stable, within normal limits. The central vasculature is not congested. There is trace residual strandy density in the right infrahilar lateral lower lung. Elsewhere, the lungs are clear. No large effusion or pneumothorax. The visualized osseous structures are intact. IMPRESSION: 1. Trace residual parenchymal change laterally right lower lobe, improved compared to the prior study. This may be incompletely resolved atelectasis or trace postobstructive pneumonia, resolving. 2. Otherwise no acute disease.
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
--- NOTE | 2016-09-05 13:30 | ED ORDER SUMMARY ---
..... Patient: [address] OrderSheet [facility] VisitID: [id number] [address] [place] [address] 31y, M Registration Date/Time: 09/05/2016 ORDER SHEET Weight: 79.3 kg (stated) Allergies: No Known Drug Allergy GENERAL ORDERS: Chest 2V Urgent (11:43 09/05/2016 DDean R.N. per protocol) (Ack 11:45 PWeiler ER Tech1) CBC w Diff Urgent (11:53 09/05/2016 DDean R.N. per protocol) (Ack 11:58 PWeiler ER Tech1) CMP Urgent (11:53 09/05/2016 DDean R.N. per protocol) (Ack 11:58 PWeiler ER Tech1) BNP Urgent (11:54 09/05/2016 DDean R.N. per protocol) (Ack 11:58 PWeiler ER Tech1) MEDICATION ORDERS: DuoNeb Neb Tx 1 unit dose (NOW) (12:30 09/05/2016 Emily MADRID) (13:34 SSambou R.N.) Prednisone PO 60 mg (NOW) (12:30 09/05/2016 Emily MADRID) (12:35 SSambou R.N.) Augmentin PO 875 mg (NOW) (13:27 09/05/2016 Emily MADRID) (13:46 SSambou R.N.) IV FLUIDS: IV Saline Lock (11:53 09/05/2016 DDean R.N. per protocol) (11:56 SSambou R.N.) ORDER SHEET NOTES: [Electronically signed by Sheriff Johan Adames (13:47 09/05/2016)] [Electronically signed by Olga Gibbs MD (14:08 09/14/2016)] [Electronically locked/signed by Sheriff Johan Adames (13:47 09/05/2016)]
--- NOTE | 2016-09-05 13:30 | ED ORDER SUMMARY ---
..... Patient: [address] OrderSheet [facility] VisitID: [id number] [address] [place] [address] 31y, M Registration Date/Time: 09/05/2016 ORDER SHEET Weight: 79.3 kg (stated) Allergies: No Known Drug Allergy GENERAL ORDERS: Chest 2V Urgent (11:43 09/05/2016 DDean R.N. per protocol) (Ack 11:45 PWeiler ER Tech1) CBC w Diff Urgent (11:53 09/05/2016 DDean R.N. per protocol) (Ack 11:58 PWeiler ER Tech1) CMP Urgent (11:53 09/05/2016 DDean R.N. per protocol) (Ack 11:58 PWeiler ER Tech1) BNP Urgent (11:54 09/05/2016 DDean R.N. per protocol) (Ack 11:58 PWeiler ER Tech1) MEDICATION ORDERS: DuoNeb Neb Tx 1 unit dose (NOW) (12:30 09/05/2016 Emily MADRID) (13:34 SSambou R.N.) Prednisone PO 60 mg (NOW) (12:30 09/05/2016 Emily MADRID) (12:35 SSambou R.N.) Augmentin PO 875 mg (NOW) (13:27 09/05/2016 Emily MADRID) (13:46 SSambou R.N.) IV FLUIDS: IV Saline Lock (11:53 09/05/2016 DDean R.N. per protocol) (11:56 SSambou R.N.) ORDER SHEET NOTES: [Electronically signed by Sheriff Johan Adames (13:47 09/05/2016)] [Electronically signed by Olga Gibbs MD (14:08 09/14/2016)] [Electronically locked/signed by Sheriff Johan Adames (13:47 09/05/2016)]
--- NOTE | 2016-09-14 14:09 | ED MAR SUMMARY ---
..... Medication Administration Record [facility] [address] [place] [address] Patient: [address] Visit ID: [id number] 31y, M Weight: 79.3 kg Height/Length: 66 in BMI: 28.2 ALLERGIES: No Known Drug Allergy Given 12:35 09/05/2016 Sheriff Adames R.N. Medication Administered: PREDNISONE [PO], Dose: 60 mg PO. Medication Ordered: Prednisone PO 60 mg (NOW). Given 13:09 09/05/2016 Sheriff Adames R.N. Medication Administered: DUONEB [NEB TX] (IPRATROPIUM-ALBUTEROL), Dose: 1 unit dose Neb TX. Medication Ordered: DuoNeb Neb Tx 1 unit dose (NOW). Given 13:41 09/05/2016 Sheriff Adames R.NBette Medication Administered: AUGMENTIN [PO] (AMOXICILLIN-POT CLAVULANATE), Dose: 875 mg Tablets PO. Medication Ordered: Augmentin PO 875 mg (NOW).
--- NOTE | 2016-09-14 14:09 | ED MAR SUMMARY ---
..... Medication Administration Record [facility] [address] [place] [address] Patient: [address] Visit ID: [id number] 31y, M Weight: 79.3 kg Height/Length: 66 in BMI: 28.2 ALLERGIES: No Known Drug Allergy Given 12:35 09/05/2016 Sheriff Adames R.N. Medication Administered: PREDNISONE [PO], Dose: 60 mg PO. Medication Ordered: Prednisone PO 60 mg (NOW). Given 13:09 09/05/2016 Sheriff Adames R.N. Medication Administered: DUONEB [NEB TX] (IPRATROPIUM-ALBUTEROL), Dose: 1 unit dose Neb TX. Medication Ordered: DuoNeb Neb Tx 1 unit dose (NOW). Given 13:41 09/05/2016 Sheriff Adames R.NBette Medication Administered: AUGMENTIN [PO] (AMOXICILLIN-POT CLAVULANATE), Dose: 875 mg Tablets PO. Medication Ordered: Augmentin PO 875 mg (NOW).
--- NOTE | 2016-09-14 14:09 | ED MED RECONCILIATION SUMMARY ---
Patient: [address] Medication Reconciliation Report [facility] VisitID: [id number] [address] [place] [address] 31y, M Registration Date/Time: 09/05/2016 Weight: 79.3 kg Height/Length: 66 in. BMI: 28.2 ALLERGIES: No Known Drug Allergy The patient's Home Medications are listed below: CONTINUE TAKING THE FOLLOWING MEDICATIONS: Amitriptyline HCl Oral (100 mg) 1 tablet, at bedtime Gabapentin Oral 600 mg, 3x a day Remeron Oral 30 mg, daily SEROquel Oral 300 mg, at bedtime The source(s) of the original Home Medication information: Not obtained. The following Medications were given to the patient in the Emergency Department: Prednisone [PO] PO 60 mg, administered: 09/05/2016 12:35:00 PM Duoneb [Neb Tx] Neb TX 1 unit dose, administered: 09/05/2016 1:09:00 PM Augmentin [PO] PO 875 mg, administered: 09/05/2016 1:41:00 PM The following Medications were prescribed to the patient: Prednisone 20 mg: take 3 orally every day for 3 days. Dispense sufficient quantity. No refills. -- Olga Gibbs MD Augmentin 875 mg: take 1 tablet orally every 12 hours for 7 days. No refill. Substitution is permissible. -- Olga Gibbs MD
--- NOTE | 2016-09-14 14:09 | ED MED RECONCILIATION SUMMARY ---
Patient: [address] Medication Reconciliation Report [facility] VisitID: [id number] [address] [place] [address] 31y, M Registration Date/Time: 09/05/2016 Weight: 79.3 kg Height/Length: 66 in. BMI: 28.2 ALLERGIES: No Known Drug Allergy The patient's Home Medications are listed below: CONTINUE TAKING THE FOLLOWING MEDICATIONS: Amitriptyline HCl Oral (100 mg) 1 tablet, at bedtime Gabapentin Oral 600 mg, 3x a day Remeron Oral 30 mg, daily SEROquel Oral 300 mg, at bedtime The source(s) of the original Home Medication information: Not obtained. The following Medications were given to the patient in the Emergency Department: Prednisone [PO] PO 60 mg, administered: 09/05/2016 12:35:00 PM Duoneb [Neb Tx] Neb TX 1 unit dose, administered: 09/05/2016 1:09:00 PM Augmentin [PO] PO 875 mg, administered: 09/05/2016 1:41:00 PM The following Medications were prescribed to the patient: Prednisone 20 mg: take 3 orally every day for 3 days. Dispense sufficient quantity. No refills. -- Olga Gibbs MD Augmentin 875 mg: take 1 tablet orally every 12 hours for 7 days. No refill. Substitution is permissible. -- Olga Gibbs MD
--- NOTE | 2016-09-14 14:09 | ED DISCHARGE INSTRUCTIONS ---
Patient: [address] General Instructions [facility] VisitID: [id number] [place] [address] 31y, M Registration Date/Time: 09/05/2016 Acute cough (s/p pneumonia). Puncture wound. Single deep plantar puncture wound to the right foot. Infection present.No foreign body. INSTRUCTIONS Drink plenty of fluids. Warnings: GENERAL WARNINGS: Return or contact your physician immediately if your condition worsens or changes unexpectedly, if not improving as expected, or if other problems arise. Your Current Medications: CONTINUE TAKING THE FOLLOWING MEDICATIONS: Amitriptyline HCl Oral : Tablet 100 mg, 1 tablet at bedtime. Gabapentin Oral : 600 mg 3x a day. Remeron Oral : 30 mg daily. SEROquel Oral : 300 mg at bedtime. Prescription Medications: Prednisone 20 mg: take 3 orally every day for 3 days. Dispense sufficient quantity. No refills. Augmentin 875 mg: take 1 tablet orally every 12 hours for 7 days. No refill. Substitution is permissible. Follow-up: Follow up with your doctor in seven days if not better. Understanding of the discharge instructions verbalized by patient and family. ADDITIONAL INFORMATION Puncture Wound: Foot A puncture is a hole through the skin. Bacteria, dirt, and debris can be drawn into this wound, increasing the risk of infection. Antibiotics are usually not prescribed for this injury unless signs of infection are already present. Therefore, it is important to observe the wound closely for the signs of infection listed below. If you were wearing a rubber-soled shoe when the sharp object punctured your foot, there is a chance that bacteria (called "pseudomonas") from the sole of the shoe may be dragged into the wound and infect the skin, tendon or bone. This infection may start as late as 2-3 weeks after the injury. It is more serious and harder to treat than the common staph and strep skin infections, so follow the advice below. Home Care: Keep the foot raised during the first 24-48 hours to reduce swelling and pain. DO NOT BEAR WEIGHT on the injured foot if it hurts to do so. You may use acetaminophen (Tylenol) or ibuprofen (Motrin, Advil) to control pain, unless another medicine was prescribed. [NOTE: If you have chronic liver or kidney disease or ever had a stomach ulcer or GI bleeding, talk with your doctor before using these medicines.] You may shower as usual, but do not soak the wound in water (no baths or swimming) until the wound seals and there is no more drainage or bleeding. Keep the wound clean and dry. If a bandage was applied and it becomes wet or dirty, replace it. Otherwise, keep the wound covered until there is no more drainage or bleeding. Follow Up: Most puncture wounds heal within 10 days. However, an infection may sometimes occur despite proper treatment. If small particles were drawn into the puncture wound (such as fragments of cloth, rubber, wood or dirt), an infection may occur. These fragments are very hard to find during the first exam since it is not possible to get a good look inside a puncture wound and they do not show on an X-ray. Antibiotics and a minor surgical procedure to find and remove the foreign object will be needed if this happens. Over the next 2-3 weeks, check the wound daily for the warning signs listed below. If you are still having swelling or pain in the foot after two weeks, you should contact your doctor or return to this facility for an x-ray to look for an infection in the bone. [NOTE: Any X-rays taken will be reviewed by a radiologist. You will be notified of any new findings that may affect your care.] Get Prompt Medical Attention if any of the following occur: Increasing pain Foot becomes cold, blue, numb, or tingly Fever of 100.4F (38C) or higher, or as directed by your healthcare provider Redness, warmth, swelling or drainage from the wound Pain or swelling that lasts for two weeks You have been given the following additional information: Puncture Wound, Foot (Electronically signed by Olga Gibbs MD 09/14/2016 14:08)
== END 2016-09-05 13:40 | disposition home or self-care (01) ==
LOC: ED SRH 11:14
DX: R05 Cough (principal); S91.331A Puncture wound without foreign body, right foot, initial encounter; L08.9 Local infection of the skin and subcutaneous tissue, unspecified; W45.0XXA Nail entering through skin, initial encounter; Y93.9 Activity, unspecified; Y99.9 Unspecified external cause status; Y92.9 Unspecified place or not applicable; Z87.01 Personal history of pneumonia (recurrent); Z79.899 Other long term (current) drug therapy
CPT/HCPCS: 90100; 91320; 95059